=== PATIENT | male | born 1955 | race Hispanic/Latino ===

== ENCOUNTER 2018-07-04 15:44 | Inpatient (IN) | payer OTHER ==
[~2018-07-04] VITALS: Ht 162.6 cm; Wt 89.4 kg
[2018-07-04 16:08] VITALS: BP 126/56
[2018-07-04 17:00] VITALS: BP 126/56
--- NOTE | 2018-07-04 17:00 | NUR ---
PATIENT RECEIVED PER WHEEL CHAIR A DIRECT ADMIT FROM HOME. ALERT AND ORIENTED X4. DENIED PAIN AT THIS TIME. SKIN WARM AND DRY TO TOUCH, RESPIRATION EVEN AND UNLABORED, ABDOMEN SOFT LARGE AND NON DISTENDED. IV 2O GAUGE INSERTED TO RIGHT AC. LAB CALLED FOR BLOOD DRAWN. NOTED WITH ELEVATED TEMPERATURE, NOTIFIED AND NEW ORDER RECEIVED. PATIENT ORIENTED TO SURROUNDINGS. BED IN LOWER POSITION, CALL LIGHT AT REACH, INSTRUCTED TO CALL FOR ASSISTANCE NEEDED.
[2018-07-04] MEDS ORDERED: DEXTROSE 50% SYRINGE 50 ML IV PRN ×2 (17:15→17:30)
[2018-07-04] MEDS: INSULIN LISPRO 100 UNIT/1 ML 3ML VIAL SQ SCH ×2 (17:50→20:57)
[2018-07-04] MEDS: ACETAMINOPHEN 325 MG TAB PO PRN (17:55)
[2018-07-04] MEDS: SODIUM CHLORIDE 0.9% 1000ML 1,000 ML IV SCH (17:56)
[2018-07-04] MEDS: CARVEDILOL 12.5 MG TAB PO SCH (17:57)
--- NOTE | 2018-07-04 18:01 | Diagnostic Imaging Report ---
A single frontal view of the chest. HISTORY: Congestion COMPARISON: None available. DISCUSSION: Portable technique, limits sensitivity of the exam. Soft tissue attenuation partially limits sensitivity of the exam. Tubes/Lines: None Lungs and pleura: Low lung volumes result in bibasilar vascular crowding, accentuation of the pulmonary interstitial markings, central pulmonary vasculature, and the cardiac silhouette. Allowing for these limitations, the findings are as follows: No evidence of a consolidative pneumonia or pulmonary alveolar edema. No definite pleural effusion or pneumothorax is identified. Heart and mediastinum: The cardiomediastinal silhouette appears unremarkable. Bones and soft tissues: Appear unremarkable, given this limited exam. IMPRESSION: No acute radiographic abnormality. Signed by: Dr. Zak Balderrama D.O., M.M.M. on 07/04/2018 5:57 PM
[2018-07-04 18:48] LABS: BASOPHILS % 0.2 % (0.0-1.0); EOSINOPHILS % 0.1 % (0.0-6.0); HEMATOCRIT 31.6 % (38.2-49.6); HEMOGLOBIN 11.3 g/dL (14.0-18.0); LYMPHOCYTES # (AUTO) 0.6 (1.0-3.2); LYMPHOCYTES % 5.8 % (18.0-39.1); MEAN CORPUSCULAR HEMOGLOBIN 32.1 pg (28-32); MEAN CORPUSCULAR HGB CONC 35.8 g/dL (31-35); MEAN CORPUSCULAR VOLUME 89.8 fL (81-99); MONOCYTES # (AUTO) 0.9 (0.2-0.8); MONOCYTES % 8.9 % (4.4-11.3); NEUTROPHILS # (AUTO) 8.9 (2.1-6.9); NEUTROPHILS % 84.7 % (38.7-80.0); PLATELET COUNT 227 x10e3/uL (140-360); RED BLOOD COUNT 3.52 x10e6/uL (4.3-5.7); RED CELL DISTRIBUTION WIDTH 12.9 % (11.7-14.4)
[2018-07-04 19:06] LABS: ALBUMIN 2.7 g/dL (3.5-5.0); ALBUMIN/GLOBULIN RATIO 0.9 (0.8-2.0); ANION GAP 16.2 mmol/L (8-16); CALCIUM 8.2 mg/dL (8.4-10.2); CREATININE, SERUM 1.85 mg/dL (0.72-1.25); POTASSIUM 4.2 mmol/L (3.5-5.1)
[2018-07-04 19:30] VITALS: BP 109/52
--- NOTE | 2018-07-04 19:30 | NUR ---
Received change of shift report from AM nurse. Walking rounds completed.
[2018-07-04] MEDS: ATORVASTATIN 40 MG TAB PO SCH (20:18)
[2018-07-04] MEDS ORDERED: INSULIN REGULAR, HUMAN 100 UNIT/1 ML 3ML VIAL SQ SCH (21:00)
[2018-07-04] MEDS ORDERED: ATORVASTATIN 20 MG TAB PO SCH (21:00)
[2018-07-04] MEDS: PIPER-TAZ 3.375 GM 50 ML IV SCH (21:07)
[2018-07-05] VITALS (7 sets, daily range): BP systolic 103–141; BP diastolic 54–66
--- NOTE | 2018-07-05 | NUR ---
Patient resting quitly at this time.
[2018-07-05] MEDS: ACETAMINOPHEN 325 MG TAB PO PRN (00:10)
[2018-07-05] MEDS: SODIUM CHLORIDE 0.9% 1000ML 1,000 ML IV SCH (01:15)
[2018-07-05] MEDS: PIPER-TAZ 3.375 GM 50 ML IV SCH ×3 (05:31→22:30)
--- NOTE | 2018-07-05 06:27 | NUR ---
Patient resting quitly at this time.
--- NOTE | 2018-07-05 07:22 | NUR ---
PATIENT IN BED RESTING WITH NO RESPIRATORY DISTRESS. URINAL EMPTIED AND CLEANSED. IV FLUID INFUSING ORDERED. BED IN LOWER POSITION, CALL LIGHT AT REACH.
[2018-07-05] MEDS: INSULIN REGULAR, HUMAN 100 UNIT/1 ML 3ML VIAL SQ SCH ×2 (07:30→11:30)
[2018-07-05] MEDS ORDERED: INSULIN ASPART 70/30 100 UNITS/ML VIAL SC SCH (07:30)
[2018-07-05] MEDS: INSULIN LISPRO 100 UNIT/1 ML 3ML VIAL SQ SCH ×5 (07:30→21:08)
[2018-07-05] MEDS ORDERED: METFORMIN HCL 500 MG TAB CR PO SCH (08:00)
--- NOTE | 2018-07-05 08:55 | History and Physical ---
CHIEF COMPLAINT: Burning and frequency of urine since last few days associated with severe chills and low back pain. HISTORY OF PRESENT MEDICAL ILLNESS: A 63-year-old pleasant male with past medical history of multiple medical problems, was admitted at [facility] yesterday afternoon by PCP/attending, Dr. Sin St from his office for possible pyelonephritis, UTI, and sepsis. Patient was admitted into the hospital. Patient was started on IV antibiotic, Zosyn, for further care and treatment. At present, patient is lying comfortably in bed, no apparent distress. No shortness of breath. No nausea, vomiting, or diarrhea. No abdominal pain or loss of consciousness. No palpitations. No headaches. No hematemesis, no melena, no hematuria, or no dysuria. No cough. No witnessed seizures. Complained of chest pain on and off since last few days, generalized, no radiation, no relation to exertion. PAST MEDICAL HISTORY 1. Diabetes mellitus type 2, uncontrolled. 2. CAD. 3. Hypertension. 4. Degenerative joint disease. MEDICATIONS: As listed in chart. ALLERGIES: NO KNOWN DRUG ALLERGIES. PAST SURGICAL HISTORY: Not significant. SOCIAL HISTORY: No smoking. No alcohol. No illicit drug use. Lives with family. REVIEW OF SYSTEMS: As per HPI. PHYSICAL EXAMINATION GENERAL: Patient is alert, awake and oriented x3, in no apparent distress, eating breakfast in bed. VITALS: T-max yesterday at 101, pulse is 88 per minute, respiratory rate is 18 per minute, blood pressure is 148/70, and saturation is 96%. SKIN: No cyanosis. No icterus. No pallor. HEENT: Normocephalic, atraumatic. PERRLA. NECK: Soft and supple. No JVD. No carotid bruits. LUNGS: Air entry bilaterally equal HEART: S1 and S2. No murmur, no gallop, no rub. ABDOMEN: Soft, nontender. Bowel sounds plus. MANUFACTURING QUALITY INSPECTOR: Alert, awake, and oriented x3. No focal deficit. EXTREMITIES: No cyanosis, no clubbing, no edema. No calf pain. LABS: On admission last night; sodium 120, potassium 4.2, chloride 94, bicarb 23, BUN 30, creatinine 1.85, glucose 403. LFTs noted. White count 10.4, hemoglobin 11.3, hematocrit 31.6, and platelets 227. Chest x-ray, no acute radiographic abnormality. ASSESSMENT 1. Fever and chills with burning urine, likely urinary tract infection, pyelonephritis, sepsis. 2. Diabetes mellitus type 2, uncontrolled. 3. Atypical chest pain. 4. History of hypertension. 5. Degenerative joint disease. 6. Coronary artery disease. 7. Acute renal insufficiency. PLAN: Admit patient to community hospital floor. IV Zosyn, harden cultures, ultrasound of renal. Endocrine consultation, Dr. Carmichael. Renal consultation, Dr. Villegas. We will get EKG and serial cardiac enzymes. Cardiology consultation, Dr. Shearer. We will continue home medications. Hold metformin, losartan, and hydrochlorothiazide secondary to acute renal insufficiency. Further care and treatment as per clinical course of the patient in the hospital. Discussed with patient in detail. Job#: [id number] ROBERTH
[2018-07-05] MEDS ORDERED: LOSARTAN POTASSIUM 100 MG TAB PO SCH (09:00)
[2018-07-05] MEDS ORDERED: HYDROCHLOROTHIAZIDE 25 MG TAB PO SCH (09:00)
[2018-07-05 09:02] LABS: BASOPHILS % 0.1 % (0.0-1.0); EOSINOPHILS % 0.4 % (0.0-6.0); HEMATOCRIT 34.1 % (38.2-49.6); HEMOGLOBIN 12.4 g/dL (14.0-18.0); LYMPHOCYTES # (AUTO) 0.6 (1.0-3.2); LYMPHOCYTES % 7.3 % (18.0-39.1); MEAN CORPUSCULAR HEMOGLOBIN 32.3 pg (28-32); MEAN CORPUSCULAR HGB CONC 36.4 g/dL (31-35); MEAN CORPUSCULAR VOLUME 88.8 fL (81-99); MONOCYTES # (AUTO) 1.1 (0.2-0.8); MONOCYTES % 13.4 % (4.4-11.3); NEUTROPHILS # (AUTO) 6.7 (2.1-6.9); NEUTROPHILS % 78.3 % (38.7-80.0); PLATELET COUNT 247 x10e3/uL (140-360); RED BLOOD COUNT 3.84 x10e6/uL (4.3-5.7); RED CELL DISTRIBUTION WIDTH 12.9 % (11.7-14.4)
[2018-07-05 09:06] LABS: CLARITY,URINE HAZY (CLEAR); COLOR,URINE YELLOW (YELLOW); KETONES,URINE TRACE (NEGATIVE); LEUKOCYTE ESTERASE ,URINE TRACE (NEGATIVE); NITRITE,URINE NEGATIVE (NEGATIVE); PROTEIN,URINE DIPSTICK TRACE (NEGATIVE)
[2018-07-05 09:07] LABS: BILIRUBIN,URINE NEGATIVE (NEGATIVE); URINE UROBILINOGEN 0.2 mg/dL (0.2 - 1)
[2018-07-05 09:15] LABS: BACTERIA,URINE FEW /HPF; EPITHELIAL CELLS,URINE FEW /LPF; RBC,URINE 0-5 /HPF (0-5)
[2018-07-05] MEDS: CLOPIDOGREL BISULFATE 75 MG TAB PO SCH (09:20)
[2018-07-05] MEDS: CLONIDINE HCL 0.1 MG TAB PO SCH ×2 (09:20→17:18)
[2018-07-05] MEDS: CARVEDILOL 12.5 MG TAB PO SCH ×2 (09:20→17:14)
[2018-07-05] MEDS: PREGABALIN 50 MG CAP PO SCH ×2 (09:20→17:14)
[2018-07-05 09:21] LABS: ALBUMIN 2.7 g/dL (3.5-5.0); ALBUMIN/GLOBULIN RATIO 0.8 (0.8-2.0); CALCIUM 8.8 mg/dL (8.4-10.2); CREATININE, SERUM 1.33 mg/dL (0.72-1.25)
[2018-07-05 09:28] LABS: CREATINE KINASE MB 1.2 ng/mL (0-5.0)
[2018-07-05] MEDS ORDERED: ASPIRIN 81 MG CHEW TAB PO ONE (09:30)
[2018-07-05 09:44] LABS: CHOL/HDL RATIO 3.2 (3.9-4.7)
--- NOTE | 2018-07-05 10:19 | Consultation ---
DATE OF CONSULTATION: REQUESTING PHYSICIAN: Dr. Rhodes/Dr. St. REASON FOR CONSULT: Chest pain. HISTORY OF PRESENT ILLNESS: Mr. Murrieta is a 63-year-old gentleman with past medical history as listed below. He was admitted from Dr. St's office for UTI, possible pyelonephritis. The patient states that he has been having urinary problems and has burning sensation when he urinates for the last week or so. He was started on antibiotics. Reportedly since , he has also been experiencing some shortness of breath and this morning, he started experiencing pain all across his chest. He states it lasted for several hours. No radiation. No abdominal pain, vomiting, or diarrhea. He does have some backache. REVIEW OF SYSTEMS: Constitutional: He has some fatigue and weakness. HEENT: No headache, blurring of vision, seizures, or syncope. Cardiovascular: He has chest pain. He has dyspnea. No orthopnea or PND. Respiratory: No cough. Has fever, chills. No expectoration. GI: No abdominal pain, vomiting, or diarrhea. : He has some dysuria and has frequency. ALLERGIES: NO KNOWN DRUG ALLERGIES. MEDICATIONS: See list. PAST MEDICAL HISTORY 1. History of hypertension. 2. History of diabetes mellitus. 3. History of back pain. 4. History of arthritis. SOCIAL HISTORY: He does not smoke. He drinks alcohol occasionally. FAMILY HISTORY: Noncontributory. PHYSICAL EXAMINATION GENERAL: Slightly obese gentleman, alert and oriented, not in any obvious distress. VITALS: Heart rate is 88. Blood pressure 141/66. Respiratory rate is 18. Temperature 99 1. HEENT: Atraumatic. NECK: No JVD, bruit, thyromegaly, or lymphadenopathy. CARDIOVASCULAR: First and second heart sounds. No murmurs, rubs, or gallops appreciated. CHEST: Decreased air entry at the bases. No adventitious sounds appreciated. ABDOMEN: Obese and nontender. EXTREMITIES: No edema. LABORATORY DATA: Sodium is 129, potassium 4.0, chloride 94, bicarb is 23, BUN is 30, creatinine is 1.8. Hemoglobin is 11.3, hematocrit 31.6, platelets 227,000. White count is 10.4. LFTs are normal. IMAGING STUDIES: No EKG available. Chest x-ray, no acute changes. IMPRESSION Urinary tract infection/pyelonephritis. Chest pain. Diabetes mellitus. Hypertension. Arthritis. Renal failure. Hyponatremia. PLAN 1. Follow serial cardiac enzymes. 2. Get echocardiogram to assess LV function and valvular function. 3. His chest pain is atypical. 4. Use statin and clopidogrel. Can continue the same. 5. Continue with other medications. 6. Further cardiac workup depending on clinical course. 7. Discussed my impression, plan, and management with patient and he understands. As always, I appreciate and thank you very much for the referral. Job#: [id number] ROSSANA
--- NOTE | 2018-07-05 11:41 | NUR ---
URINE SPECIMEN COLLECTED AND SENT TO THE LAB.
--- NOTE | 2018-07-05 12:28 | Diagnostic Imaging Report ---
EXAM: RENAL ULTRASOUND Date: 07/05/2018 12:00 AM Indication: Comparison: None Technique: Sonographic evaluation of the kidneys. Color doppler was utilized to supplement evaluation. FINDINGS: KIDNEYS: Right: Measures 12.3 cm in length. No hydronephrosis or solid mass lesion identified. Renal cortex measures 1.2 cm. Left: Measures 12.4 cm in length. No hydronephrosis or solid mass lesion identified. Renal cortex measures 1.6 cm. URINARY BLADDER: Right ureteral jet visualized. Left jet not visualized, questionably technical. OTHER: None. IMPRESSION: Unremarkable renal ultrasound. Signed by: Dr. Derik Zhang MD on 07/05/2018 12:25 PM
--- NOTE | 2018-07-05 15:31 | Consultation ---
DATE OF CONSULTATION: July 05, 2018 ATTENDING PHYSICIAN: Dr. Sin St REASON FOR CONSULTATION: Fever. Thank you Dr. Rhodes and Dr. St for asking me to see this patient. HISTORY: The patient is a 63-year-old man referred for fever. He was admitted from the primary care provider's office with acute pyelonephritis. The patient developed progressively worse dysuria 5 days earlier, associated with lower back pain, chills, fever, and nausea a day or two prior. On the day of admission, he had an episode of watery stool. Therefore, he decided to go to the primary care provider. Following evaluation, he was admitted from the primary care provider's office for further evaluation and management. PAST MEDICAL HISTORY: Diabetes mellitus type 2 with peripheral neuropathy, hypertension, hyperlipidemia, and coronary artery disease. PAST SURGICAL HISTORY: Bilateral feet surgery for hammertoes, and excision of fatty tumor of the foot. ALLERGIES: NO KNOWN DRUG ALLERGIES. MEDICATION: The current antibiotic is Zosyn 3.375 grams IV q.8 hours. IMMUNIZATION: Unable to verify influenza and pneumococcal vaccination status at this time. FAMILY HISTORY: Significant for diabetes mellitus type 2 in the parents and siblings. SOCIAL HISTORY: He quit smoking cigarettes 30 years ago. He cut down alcohol consumption drastically to occasional one beer. REVIEW OF SYSTEMS: The patient feels better since admission and management. He feels that the fever appears to subside and he has not had new diarrhea. However, he developed difficulty breathing and chest tightness on IV fluids which required a cardiology evaluation. PHYSICAL EXAMINATION VITALS: T-Max 101, pulse rate 83, respiratory rate 23, blood pressure 103/55, weight 198 pounds. GENERAL: No acute distress. HEENT: Normocephalic. There is no icterus or injection of conjunctivae. There is no ear or nasal discharge. Moist oral mucosa. No pharyngeal erythema or exudate. NECK: Supple. No meningismus. LUNGS: Few basilar rales. HEART: Normal S1 and S2. Regular. ABDOMEN: Soft and nontender. EXTREMITIES: There is no edema, clubbing, or cyanosis. The dorsalis pedis and posterior tibial pulses are palpable. SKIN: There is no acute erythema. CESSATION SYSTEMS OUTREACH SPECIALIST: Awake, alert, and oriented to person, place, and time. There is decreased sensation to monofilament test of the feet. Nonfocal. LABORATORY DATA/DIAGNOSTIC DATA: WBC 8490 down from 10,470, hemoglobin 12.4, platelet 247,000, neutrophils 78.3, lymphocytes 7.3, monocytes 13.4, eosinophil 0.4, basophil 0.1. BUN 20, creatinine 1.33, blood glucose 296 down from 400 on admission. Blood culture is pending. A urine culture is also pending. Renal ultrasound was unremarkable. IMPRESSION 1. Probable sepsis from acute pyelonephritis, present on admission. 2. Diabetes mellitus type 2. 3. Peripheral neuropathy, uncontrolled. 4. Acute kidney injury, improving. PLAN: Await blood and urine culture results. Verify influenza and pneumococcal vaccination status from the primary care provider's office. Stop IV fluids due to difficulty breathing on IV fluids suggesting fluid overload. Patient should take fluid orally. Glycemic control per endocrinology service. Job#: [id number] ROSSANA
--- NOTE | 2018-07-05 16:31 | NUR ---
MD IN TO SEE PATIENT, NEW ORDERS RECEIVED.
[2018-07-05 17:42] LABS: FREE T4 (FREE THYROXINE) 0.95 ng/dL (0.9-1.8); THYROID STIMULATING HORMONE 0.153 uIU/mL (0.350-4.940)
--- NOTE | 2018-07-05 19:51 | Consultation ---
DATE OF CONSULTATION: July 05, 2018 ENDOCRINE CONSULTATION PATIENT OF: Dr. Sin St. Thank you very much for referring this patient. HISTORY OF PRESENT ILLNESS This is a 63-year-old gentleman who is referred to me for evaluation of uncontrolled diabetes mellitus. Patient reportedly is a nondiabetic for almost 10 plus years. He has multiple complications related to diabetes including severe diabetic sensory neuropathy. He came to the hospital with history of pyelonephritis, urinary tract infection, high-grade fever, and chills. Patient takes about 60 units of 70/30 twice a day and also takes regular insulin 15 to 30 three times a day depending upon his blood sugars. Patient also has history of coronary artery disease, mild renal sufficiency, hypertension and hyperlipidemia. His other routine medications include Plavix, Lipitor 80 mg once daily, clonidine, and Lyrica. PHYSICAL EXAMINATION GENERAL: Today, the patient is alert, awake, a little bit apprehensive, morbidly overweight. VITALS: His heart rate is around 78, blood pressure 136/86 mmHg. HEENT: Essentially unremarkable. Thyroid is palpable. Clinically, he is near euthyroid. CHEST: Bilateral vesicular breathing. He has bilateral bronchospasm. CARDIAC: Both 1st and 2nd heart sounds. There is no 3rd and 4th heart sound. Ejection systolic murmur, grade 2/6. At the time of his admission, his blood sugar was 403 and anion gap was 16.2. His BUN and creatinine is 30 and 1.85. His blood sugars have been presently in the ranges up to 96 to 335. CLINICAL IMPRESSION 1. Diabetes mellitus type 2, uncontrolled with complications. 2. Acute pyelonephritis. 3. Hypertension. 4. Hyperlipidemia. 5. Coronary artery disease. The plan at this time is to do a hemoglobin A1c, thyroid function test, morning his blood sugars closely, and start him on the Lantus twice a day and Humalog with each meal and discontinued the 70/30 insulin. Thanks for referring this patient. I will be following this patient with you. Job#: [id number] GRIS MANCINI
[2018-07-05] MEDS: TAMSULOSIN HCL 0.4 MG CAP PO SCH (21:07)
[2018-07-05] MEDS: INSULIN DETEMIR 100 UNIT/ML PEN SQ SCH (21:07)
[2018-07-05] MEDS: ATORVASTATIN 40 MG TAB PO SCH (21:07)
[2018-07-06] VITALS (8 sets, daily range): BP systolic 120–150; BP diastolic 58–71
[2018-07-06] MEDS: PIPER-TAZ 3.375 GM 50 ML IV SCH ×3 (06:04→21:51)
[2018-07-06 06:07] LABS: CREATINE KINASE 208 IU/L (30-200)
[2018-07-06 07:03] LABS: ANION GAP 15.1 mmol/L (8-16); BLOOD UREA NITROGEN 15 mg/dL (7-26); BUN/CREATININE RATIO 13 (6-25); CALCIUM 9.2 mg/dL (8.4-10.2); CARBON DIOXIDE 25 mmol/L (22-29); CHLORIDE 103 mmol/L (98-107); CREATININE, SERUM 1.13 mg/dL (0.72-1.25); EST GLOMERULAR FILTRATION RATE > 60 ML/MIN (60-); GLUCOSE 124 mg/dL (74-118); POTASSIUM 4.1 mmol/L (3.5-5.1); SODIUM 139 mmol/L (136-145)
--- NOTE | 2018-07-06 07:14 | NUR ---
PATIENT SITTING UP IN BED WATCHING TV, NO RESPIRATORY DISTRESS OBSERVED. ALL PERSONAL ITEMS CLOSE TO PATIENT, CALL LIGHT AT REACH.
[2018-07-06] MEDS: INSULIN LISPRO 100 UNIT/1 ML 3ML VIAL SQ SCH ×7 (07:30→21:00)
[2018-07-06] MEDS: INSULIN DETEMIR 100 UNIT/ML PEN SQ SCH ×2 (09:00→21:00)
[2018-07-06] MEDS: CLOPIDOGREL BISULFATE 75 MG TAB PO SCH (09:06)
[2018-07-06] MEDS: CARVEDILOL 12.5 MG TAB PO SCH ×2 (09:06→17:21)
[2018-07-06] MEDS: CLONIDINE HCL 0.1 MG TAB PO SCH ×2 (09:06→17:20)
[2018-07-06] MEDS: PREGABALIN 50 MG CAP PO SCH ×2 (09:06→17:21)
[2018-07-06] MEDS ORDERED: ALBUTEROL/IPRATROPIUM 3 ML NEB NEB PRN (10:30)
[2018-07-06] MEDS ORDERED: BENZONATATE 100 MG CAP PO PRN (10:30)
--- NOTE | 2018-07-06 11:30 | NUR ---
SPOKE WITH MD REGARDING OF PATIENT COUGHING AT TIME, NEW ORDER RECEIVED.
[2018-07-06 13:22] LABS: CREATINE KINASE 188 IU/L (30-200)
--- NOTE | 2018-07-06 15:15 | NUR ---
PATIENT ASSISTED WITH SHOWER. LINENS CHANGED, IN CHAIR TALKING TO FAMILY MEMBERS. CALL LIGHT AT REACH.
[2018-07-06] MEDS: TAMSULOSIN HCL 0.4 MG CAP PO SCH (21:20)
[2018-07-06] MEDS: ATORVASTATIN 40 MG TAB PO SCH (21:20)
[2018-07-07] VITALS (7 sets, daily range): BP systolic 125–154; BP diastolic 59–76
[2018-07-07 05:33] LABS: BASOPHILS % 0.3 % (0.0-1.0); EOSINOPHILS # (AUTO) 0.2 (0.0-0.4); EOSINOPHILS % 2.6 % (0.0-6.0); HEMATOCRIT 36.1 % (38.2-49.6); HEMOGLOBIN 12.3 g/dL (14.0-18.0); LYMPHOCYTES # (AUTO) 1.1 (1.0-3.2); LYMPHOCYTES % 16.9 % (18.0-39.1); MEAN CORPUSCULAR HGB CONC 34.1 g/dL (31-35); MEAN CORPUSCULAR VOLUME 90.9 fL (81-99); MONOCYTES # (AUTO) 0.9 (0.2-0.8); MONOCYTES % 13.9 % (4.4-11.3); NEUTROPHILS # (AUTO) 4.1 (2.1-6.9); PLATELET COUNT 295 x10e3/uL (140-360); RED BLOOD COUNT 3.97 x10e6/uL (4.3-5.7); RED CELL DISTRIBUTION WIDTH 12.9 % (11.7-14.4)
[2018-07-07 05:59] LABS: ALANINE AMINOTRANSFERASE 73 IU/L (0-55); ALBUMIN 2.7 g/dL (3.5-5.0); ALBUMIN/GLOBULIN RATIO 0.7 (0.8-2.0); ALKALINE PHOSPHATASE 98 IU/L (40-150); ANION GAP 15.3 mmol/L (8-16); BLOOD UREA NITROGEN 14 mg/dL (7-26); BUN/CREATININE RATIO 13 (6-25); CALCIUM 9.6 mg/dL (8.4-10.2); CARBON DIOXIDE 25 mmol/L (22-29); CHLORIDE 104 mmol/L (98-107); CREATININE, SERUM 1.11 mg/dL (0.72-1.25); EST GLOMERULAR FILTRATION RATE > 60 ML/MIN (60-); GLUCOSE 165 mg/dL (74-118); POTASSIUM 4.3 mmol/L (3.5-5.1); SODIUM 140 mmol/L (136-145)
[2018-07-07] MEDS: PIPER-TAZ 3.375 GM 50 ML IV SCH (06:04)
[2018-07-07 07:55] LABS: EOSINOPHILS % (MANUAL) 12 % (0-7); LYMPHOCYTES % (MANUAL) 15 % (19-48); MONOCYTES % (MANUAL) 9 % (3.4-9.0); NEUTROPHILS % (MANUAL) 61 % (40-74)
[2018-07-07 07:56] LABS: PLATELET ESTIMATE ADEQUATE; PLATELET MORPHOLOGY COMMENT NORMAL; RBC MORPHOLOGY COMMENT NORMAL
[2018-07-07] MEDS: INSULIN LISPRO 100 UNIT/1 ML 3ML VIAL SQ SCH ×7 (09:07→21:00)
[2018-07-07] MEDS: PREGABALIN 50 MG CAP PO SCH ×2 (09:08→17:42)
[2018-07-07] MEDS: CLOPIDOGREL BISULFATE 75 MG TAB PO SCH (09:08)
[2018-07-07] MEDS: INSULIN DETEMIR 100 UNIT/ML PEN SQ SCH ×2 (09:08→21:00)
[2018-07-07] MEDS: CARVEDILOL 12.5 MG TAB PO SCH ×2 (09:08→17:43)
--- NOTE | 2018-07-07 09:08 | NUR ---
Pt received resting in bed with at bedside. Alert and oriented x4 with right AC #20 patent. Oriented to staff and surroundings. Encouraged to press call crow if help needed. All meds given as ordered. Emotional support given. Will monitor
[2018-07-07] MEDS ORDERED: SODIUM CHLORIDE 0.9% 250ML 250 ML ONE (10:29)
[2018-07-07] MEDS: CLONIDINE HCL 0.1 MG TAB PO SCH ×2 (12:27→17:43)
[2018-07-07] MEDS: CEFTRIAXONE SOD 1 GM/NS 50 ML 50 ML IV SCH (12:27)
--- NOTE | 2018-07-07 13:40 | Consultation ---
DATE OF CONSULTATION: REASON FOR CONSULTATION: Acute kidney injury. Thank you for allowing us to participate in Mr. Aquino's care. This is a 63-year-old male originally admitted with symptoms consistent with pyelonephritis, including dysuria and some back discomfort. IV antibiotics were started. Briefly got some fluids. Renal ultrasound was negative. Creatinine was 1.85 on admission and is now down to 1.1. GFR is in the normal range. AST and ALT slightly elevated. UA was consistent with UTI. Thus far, the blood cultures have been negative. Urine cultures have also been negative. The symptoms and UA picture is characteristic. PAST HISTORY: Normal renal function, type 2 diabetes, hypertension, coronary artery disease. MEDICATIONS: Please see chart. SOCIAL HISTORY: Does not drink alcohol or smoke. Lives with family. REVIEW OF SYSTEMS CONSTITUTIONAL: Currently, no fever or chills. RESPIRATORY: No dyspnea or cough. CARDIAC: No angina or syncope. NEURO: Denying headache or seizures. : Dysuria has improved. The rest of the review is negative. PHYSICAL EXAMINATION VITALS: Currently, temperature is down to 97.3, pulse 74, blood pressure 125/67. HEENT: Atraumatic. NECK: No JVD. CHEST: Clear. Bilateral breath sounds are equal. CARDIAC: Normal heart tones. Rhythm sounds regular. EXTREMITIES: No edema. ABDOMEN: Benign. No CVA angle tenderness. UA was showing some wbcs and rbcs. Potassium is 4.3, serum CO2 25, creatinine 1.1. Estimated GFR greater than 60 mL per minute. The UA did show some proteinuria, but this was in the presence of pyuria too. ASSESSMENT 1. Acute kidney injury, improved: Likely from the pyelonephritis/mild acute tubular necrosis. 2. Questionable underlying mild diabetic nephropathy given the proteinuria. 3. Currently, satisfactory GFR. 4. Hypertension is adequately controlled. PLAN: From a renal standpoint, no further intervention. Once outpatient of the proteinuria/microalbuminemia persists, please add back BLANQUITA inhibitor or ARB. Will follow from a distance. Job#: [id number] CA
--- NOTE | 2018-07-07 19:00 | NUR ---
Received change of shift report from AM nurse. Walking round completed.
[2018-07-07] MEDS: ATORVASTATIN 40 MG TAB PO SCH (21:00)
[2018-07-07] MEDS: TAMSULOSIN HCL 0.4 MG CAP PO SCH (21:00)
--- NOTE | 2018-07-07 23:01 | NUR ---
Received change of shift report from GERA maloney Walking round completed. Addendum: 07/07/18 at 0485 by Estela Maldonado RN duplicate
--- NOTE | 2018-07-07 23:15 | NUR ---
Patient in room sitting in recliner chair. Denies pain at this time. Blood glucose 327. Insulin given as ordered by MD. at bedside. IV intact with no redness or pain noted.
[2018-07-08] VITALS: BP 134/65
[2018-07-08 04:00] VITALS: BP 135/62
--- NOTE | 2018-07-08 05:00 | NUR ---
Patient resting quitly with no c/o at this time.
[2018-07-08] MEDS: INSULIN LISPRO 100 UNIT/1 ML 3ML VIAL SQ SCH ×4 (07:30→12:48)
[2018-07-08 08:05] VITALS: BP 156/67
[2018-07-08] MEDS: CLONIDINE HCL 0.1 MG TAB PO SCH (08:59)
[2018-07-08] MEDS: PREGABALIN 50 MG CAP PO SCH (08:59)
[2018-07-08] MEDS: CEFTRIAXONE SOD 1 GM/NS 50 ML 50 ML IV SCH (08:59)
[2018-07-08] MEDS: CARVEDILOL 12.5 MG TAB PO SCH (08:59)
[2018-07-08] MEDS: CLOPIDOGREL BISULFATE 75 MG TAB PO SCH (08:59)
[2018-07-08] MEDS: INSULIN DETEMIR 100 UNIT/ML PEN SQ SCH (08:59)
[2018-07-08 09:00] VITALS: BP 156/67
--- NOTE | 2018-07-08 09:00 | NUR ---
Pt received resting in bed. Alert and oriented x4. All meds given as ordered. Call crow within reach. Will monitor
[2018-07-08] MEDS ORDERED: MONUROL3 GM PO (10:31)
[2018-07-08 12:05] VITALS: BP 166/74
[2018-07-08] MEDS ORDERED: LANTUS 3ML100 UNITS/ SC (13:52)
[2018-07-08] MEDS ORDERED: HUMALOG100 UNIT/3 SC (13:53)
--- NOTE | 2018-07-08 14:16 | NUR ---
Pt educated regarding meds, diet, activities, and follow up appointment with PCP. Pt verbalized understanding of teaching. Pt refusing whelchair. Escorted off unit by PCT with all belongings
[2018-07-08] MEDS ORDERED: INSULIN LISPRO 100 UNIT/1 ML 3ML VIAL SQ SCH (16:30)
--- NOTE | 2018-07-08 17:03 | Discharge Summary ---
He is a 63-year-old male patient of mine, presented to the emergency room with a complaint of severe bilateral flank pain, fever and chills and very profound weakness. ADMITTING IMPRESSIONS/DIAGNOSES 1. Pyelonephritis. 2. Possible urosepsis. 3. Diabetes mellitus. 4. Hypertension. 5. Hyperlipidemia. 6. Diabetic neuropathy. HOSPITAL COURSE: The patient was admitted with the above diagnoses. Patient had filled outpatient Rocephin just prior to her hospital admission. During hospitalization, patient was found to also have renal insufficiency. So ID, renal, cardiology, and endocrine consult was called by on-call doctor for chest pain. Patient's sugar remained controlled in the hospital. Patient's blood culture and urine culture did not grow any bacteria. Patient had improved significantly with IV antibiotic, Rocephin. The patient's renal function also had improved. Patient has a creatinine GFR of 37. So now, upon stabilization, patient will be discharged home and we will follow up as an outpatient. Patient will be given fosfomycin 3 g once a day. DISCHARGE DIAGNOSES 1. Pyelonephritis. 2. Urosepsis. 3. Diabetes mellitus. 4. Renal insufficiency. Patient was advised to follow up as outpatient. MOLLY MILES MD Job#: [id number] TA
== END 2018-07-08 14:21 | disposition home or self-care (01) | DRG 871 ==
LOC: MED/SURG3 15:44
PROVIDERS: ADMIT Internal Medicine; ATTEND Internal Medicine
DX: A41.9 Sepsis, unspecified organism (principal); N17.0 Acute kidney failure with tubular necrosis; N10 Acute pyelonephritis; E87.1 Hypo-osmolality and hyponatremia; E11.42 Type 2 diabetes mellitus with diabetic polyneuropathy; I10 Essential (primary) hypertension; E78.5 Hyperlipidemia, unspecified; E11.65 Type 2 diabetes mellitus with hyperglycemia; R07.89 Other chest pain; M19.90 Unspecified osteoarthritis, unspecified site; I25.10 Atherosclerotic heart disease of native coronary artery without angina pectoris; E11.21 Type 2 diabetes mellitus with diabetic nephropathy; Z79.4 Long term (current) use of insulin
CPT/HCPCS: 36415; 71045; 76770; 80048; 80053; 80061; 81001; 82550; 82553; 82948; 83036; 84439; 84443; 84484; 85025; 87040; 87086; 93005; 93306; 96361; J0696; J1815; J2543; J7030; J7050

== ENCOUNTER 2018-07-27 00:13 | Observation (INO) | payer OTHER ==
[~2018-07-27] VITALS: Ht 162.6 cm; Wt 91.2 kg
[~2018-07-27 00:13] MED LIST: HUMALOG100 UNIT/3 SC; LANTUS 3ML100 UNITS/ SC; MONUROL3 GM PO
--- OUTSIDE RECORDS SUMMARY | 2018-07-27 00:16 | XMS REPORT ---
Author Author [facility] Address Unknown Phone Unavailable Care Team Providers Care Armature Coil Winder Name Role Phone Wendi MILES Unavailable Unavailable Problems This patient has no known problems. Allergies, Adverse Reactions, Alerts This patient has no known allergies or adverse reactions. Medications This patient has no known medications. Results Test Description Test Time Test Comments Text Results Atomic Results Result Comments US RENAL RETROPERITONEAL COMP 2018-07-05 12:24:00 [place] [address] Patient Name: ЕЛЕНА MORRELL MR #: [id number] : 1955 Age/Sex: 63/M Req #: [id number] Adm Physician: MOLLY MILES MD Ordered by: DANIELLE WESTBROOK MD Report #: [id number] Location: [facility] Room/Bed: [facility] Procedure: [id number] US/US RENAL RETROPERITONEAL COMP Exam Date: 07/05/18 Exam Time: 1132 REPORT STATUS: Signed EXAM: RENAL ULTRASOUND Date: 07/05/2018 12:00 AM Indication: Comparison: None Technique: Sonographic evaluation of the kidneys. Color doppler was utilized to supplement evaluation. FINDINGS: KIDNEYS: Right: Measures 12.3 cm in length. No hydronephrosis or solid mass lesion identified. Renal cortex measures 1.2 cm. Left: Measures 12.4 cm in length. No hydronephrosis or solid mass lesion identified. Renal cortex measures 1.6 cm. URINARY BLADDER: Right ureteral jet visualized. Left jet not visualized, questionably technical. OTHER: None. IMPRESSION: Unremarkable renal ultrasound. Signed by: Dr. Derik Zhang MD on 07/05/2018 12:25 PM Dictated By: DERIK ZHANG MD 1225 Transcribed By: SEEMA on 07/05/18 1225 COPY TO: DANIELLE WESTBROOK MD CHEST SINGLE (PORTABLE) 2018-07-04 17:57:00 [place] [address] Patient Name: ЕЛЕНА MORRELL MR #: [id number] : 1955 Age/Sex: 63/M Req #: [id number] Adm Physician: MOLLY MILES MD Ordered by: MOLLY MILES MD Report #: [id number] Location: [facility]/SURG3 Room/Bed: [facility] Procedure: [id number] DX/CHEST SINGLE (PORTABLE) Exam Date: 07/04/18 Exam Time: 1730 REPORT STATUS: Signed A single frontal view of the chest. HISTORY: Congestion COMPARISON: None available. DISCUSSION: Portable technique, limits sensitivity of the exam. Soft tissue attenuation partially limits sensitivity of the exam. Tubes/Lines: None Lungs and pleura: Low lung volumes result in bibasilar vascular crowding, accentuation of the pulmonary interstitial markings, central pulmonary vasculature, and the cardiac silhouette. Allowing for these limitations, the findings are as follows: No evidence of a consolidative pneumonia or pulmonary alveolar edema. No definite pleural effusion or pneumothorax is identified. Heart and mediastinum: The cardiomediastinal silhouette appears unremarkable. Bones and soft tissues: Appear unremarkable, given this limited exam. IMPRESSION: No acute radiographic abnormality. Signed by: Dr. Oscar Balderrama D.O., M.M.M. on 07/04/2018 5:57 PM Dictated By: OSCAR BALDERRAMA DO 56 Transc ribed By: SEEMA on 07/04/181756 COPY TO: MOLLY MILES MD
[2018-07-27 03:00] LABS: CLARITY,URINE CLOUDY (CLEAR); COLOR,URINE RED (YELLOW); LEUKOCYTE ESTERASE ,URINE 1+ (NEGATIVE); NITRITE,URINE NEGATIVE (NEGATIVE)
[2018-07-27 03:01] LABS: BILIRUBIN,URINE NEGATIVE (NEGATIVE); EPITHELIAL CELLS,URINE FEW /LPF; KETONES,URINE NEGATIVE (NEGATIVE); PROTEIN,URINE DIPSTICK 3+ (NEGATIVE); RBC,URINE >50 /HPF (0-5); URINE UROBILINOGEN 0.2 mg/dL (0.2 - 1)
[2018-07-27 04:13] LABS: BASOPHILS % 0.2 % (0.0-1.0); EOSINOPHILS # (AUTO) 0.2 (0.0-0.4); EOSINOPHILS % 1.7 % (0.0-6.0); HEMATOCRIT 38.4 % (38.2-49.6); HEMOGLOBIN 13.4 g/dL (14.0-18.0); LYMPHOCYTES # (AUTO) 1.5 (1.0-3.2); LYMPHOCYTES % 12.1 % (18.0-39.1); MEAN CORPUSCULAR HEMOGLOBIN 31.6 pg (28-32); MEAN CORPUSCULAR HGB CONC 34.9 g/dL (31-35); MEAN CORPUSCULAR VOLUME 90.6 fL (81-99); MONOCYTES # (AUTO) 1.4 (0.2-0.8); MONOCYTES % 11.2 % (4.4-11.3); NEUTROPHILS % 74.4 % (38.7-80.0); PLATELET COUNT 276 x10e3/uL (140-360); RED BLOOD COUNT 4.24 x10e6/uL (4.3-5.7); RED CELL DISTRIBUTION WIDTH 13.2 % (11.7-14.4)
[2018-07-27 04:25] LABS: ALANINE AMINOTRANSFERASE 28 IU/L (0-55); ALBUMIN 3.8 g/dL (3.5-5.0); ALBUMIN/GLOBULIN RATIO 1.2 (0.8-2.0); ALKALINE PHOSPHATASE 75 IU/L (40-150); ANION GAP 16.7 mmol/L (8-16); BLOOD UREA NITROGEN 19 mg/dL (7-26); BUN/CREATININE RATIO 18 (6-25); CALCIUM 9.6 mg/dL (8.4-10.2); CARBON DIOXIDE 24 mmol/L (22-29); CHLORIDE 102 mmol/L (98-107); CREATININE, SERUM 1.05 mg/dL (0.72-1.25); EST GLOMERULAR FILTRATION RATE > 60 ML/MIN (60-); GLUCOSE 116 mg/dL (74-118); POTASSIUM 3.7 mmol/L (3.5-5.1); SODIUM 139 mmol/L (136-145)
[2018-07-27] MEDS: CEFTRIAXONE SOD 1 GM/NS 50 ML 50 ML IV SCH (05:00)
--- NOTE | 2018-07-27 06:20 | NUR ---
Patient arrived from ED via wheelchair as new admit. Patient alert and oriented x3. at bedside. Patient denies any pain or discomfort. Pt admitted for hematuria. Patient ambulatory in room prn. Call crow within reach. Dr. Thompson to be notified of new consult this morning.
[2018-07-27 06:46] VITALS: BP 156/67
--- NOTE | 2018-07-27 07:00 | NUR ---
Pt received in bed at 0645 from previous shift. Pt is aox4 and able to verbalize needs. Denies any pain at this time. Breaths are even and unlabored. Pt has not voided and urine is dark benjamin colored with small amount of sediment. Dr. Thompson notified of consult and received orders fro CT scan of abd/pelvis for hematuria protocol.
[2018-07-27 08:00] VITALS: BP 123/63
[2018-07-27] MEDS ORDERED: ATORVASTATIN CA20 MG PO (08:27)
[2018-07-27] MEDS ORDERED: METFORMIN HCL500 M2 PO (08:27)
[2018-07-27] MEDS ORDERED: HUMULIN 70100 UNIT/1 SQ (08:27)
[2018-07-27] MEDS ORDERED: COREG12.5 MG PO (08:27)
[2018-07-27] MEDS ORDERED: CLONIDINE HCL0.1 MG PO (08:27)
[2018-07-27] MEDS ORDERED: LYRICA50 MG PO (08:27)
[2018-07-27] MEDS ORDERED: ASPIR 8181 MG PO (08:27)
[2018-07-27] MEDS ORDERED: LOSARTAN POTAS100 MG PO (10:16)
[2018-07-27] MEDS ORDERED: DEXTROSE 50% SYRINGE 50 ML IV PRN (11:00)
--- NOTE | 2018-07-27 11:11 | History and Physical ---
CHIEF COMPLAINT: Blood in urine since last one day. HISTORY OF PRESENT MEDICAL ILLNESS: A 63-year-old pleasant male with past medical history of multiple medical problems, was admitted at [facility] early this morning with the above complaint. Patient was admitted about 3 weeks back here at [facility] for possible pyelonephritis. Patient was given IV antibiotics. Once stable, patient was sent home. As per patient, he was feeling much better after that, no problems, then since last 2 days, he noticed that his urine was getting dark and over the last 24 hours, urine got more darker and then last night, patient saw seferino blood in his urine and hence the patient came to ER. In the emergency room, patient was seen by emergency room doctor and was admitted for further workup and treatment for hematuria. At present, patient lying comfortably in bed. No apparent distress. No chest pain. No shortness of breath. No nausea, vomiting, diarrhea. No abdominal pain, loss of consciousness, or palpitations. No headaches. No hematemesis. No melena. No fever. No cough. No witnessed seizures. No dysuria. PAST MEDICAL HISTORY 1. Diabetes mellitus, type 2. 2. CAD. 3. Hypertension. 4. Degenerative joint disease. MEDICATIONS: As listed in chart. ALLERGIES: NO KNOWN DRUG ALLERGIES. PAST SURGICAL HISTORY: Not significant. SOCIAL HISTORY: No smoking. No alcohol. No illicit drug use. Lives with family. REVIEW OF SYSTEMS: As per HPI. PHYSICAL EXAMINATION GENERAL: Patient is alert, awake, oriented x3, in no apparent distress, lying in bed. VITALS: Temperature is 97, pulse is 70 per minute, respiratory rate 16 per minute, blood pressure is 140/80, saturation is 97% on room air. SKIN: No cyanosis. No icterus. No pallor. HEENT: Normocephalic, atraumatic. PERRLA plus. NECK: Soft and supple. No JVD. No carotid bruits. No lymphadenopathy. LUNGS: Air entry bilaterally equal. No rales. CV: No murmur, gallop, or rub. ABDOMEN: Soft, nontender. Bowel sounds plus. HEALTHCARE RECEPTIONIST: Alert, awake, and oriented x3. No focal deficit. EXTREMITIES: No cyanosis, no clubbing, no edema. PERIPHERAL VASCULAR: No calf pain. LABS: White count 12, hemoglobin 13.4, hematocrit 38.4, platelets 276. Sodium 139, potassium 3.7, chloride 102, bicarb 24, BUN 19, creatinine 1.05, glucose 116. LFTs noted. Ultrasound of renal done on the 05 of July was unremarkable renal ultrasound. ASSESSMENT 1. Painless hematuria. 2. History of diabetes mellitus, coronary artery disease, hypertension. PLAN: Admit patient to medical floor. Urology consultation, Dr. Thompson. Serial H and H. Further care and treatment as per clinical course of patient in the hospital. Discussed with patient in detail. Prognosis is guarded. Job#: [id number] LPA
[2018-07-27] MEDS: INSULIN LISPRO 100 UNIT/1 ML 3ML VIAL SQ SCH ×3 (11:30→21:47)
[2018-07-27 12:00] VITALS: BP 170/79
[2018-07-27] MEDS ORDERED: IOPAMIDOL 370 MG/ML 200 ML INFUS..BTL INJ ONE (12:00)
[2018-07-27] MEDS ORDERED: SODIUM CHLORIDE 0.9% 250ML 250 ML ONE (12:00)
--- NOTE | 2018-07-27 14:06 | Diagnostic Imaging Report ---
EXAM: CT abdomen and pelvis without and with contrast INDICATION: Hematuria protocol. COMPARISON: Renal ultrasound 07/05/2018. TECHNIQUE: Abdomen and pelvis were scanned in prone position without and with contrast. Coronal and sagittal reformations were obtained. Hematuria protocol was performed. Scan was performed during portal venous phase. Delayed phase imaging obtained. IV CONTRAST: 100 cc of Isovue 370. ORAL CONTRAST: Water RADIATION DOSE: Total DLP: 1502.5 mGy*cm COMPLICATIONS: None FINDINGS: LINES and TUBES: None. LOWER THORAX: Coronary atherosclerosis. HEPATOBILIARY: No focal hepatic lesions. No biliary ductal dilation. GALLBLADDER: No radio-opaque stones or sludge. No wall thickening. SPLEEN: No splenomegaly. PANCREAS: No focal masses or ductal dilatation. ADRENALS: No adrenal nodules KIDNEYS/URETERS: Kidneys enhance symmetrically. No hydronephrosis. No solid mass lesions. The majority of the ureters are opacified and demonstrate no specific evidence of urothelial lesion. No evidence of hydronephrosis. Punctate subcentimeter bilateral renal hypodensities are too small to characterize, but likely represent cysts. There is a 1.3 cm hypodense lesion in the left upper pole kidney (series 6, image 70), indeterminate measuring 26 HU on non-contrast study and 41 HU on delayed images. GI TRACT: No abnormal distention, wall thickening, or evidence of bowel obstruction. Appendix is unremarkable. PELVIS: The bladder is partially opacified on delayed images. Layering posterior hypodense material likely represents nonopacified urine. There are two somewhat linear appearing hypodense foci along the anterior aspect of the bladder on delayed images measuring 7 mm and 8 mm. Prostatomegaly measuring 4.7 cm. LYMPH NODES: No lymphadenopathy. VESSELS: Moderate atherosclerotic calcifications within the abdominal aorta and branch vessels. PERITONEUM / RETROPERITONEUM: No free air or fluid. BONES AND SOFT TISSUES: No acute osseous abnormality. No suspicious lytic or blastic lesions . IMPRESSION: Partial opacification of the bladder on delayed images. Two somewhat linear appearing subcentimeter hypodense foci along the anterior bladder are indeterminate and could represent polyps. Direct visualization/cystoscopy is suggested for further evaluation. No evidence of solid renal mass or stone. A 1.3 cm hypodense left upper pole renal lesion is indeterminate and could reflect proteinaceous or hemorrhagic cyst. A renal protocol CT or MRI may be considered for further evaluation. Signed by: Dr. Lyubov Goldman MD on 07/27/2018 2:03 PM
[2018-07-27 16:00] VITALS: BP 125/60
[2018-07-27] MEDS: CARVEDILOL 12.5 MG TAB PO SCH (17:31)
[2018-07-27] MEDS: INSULIN ASPART 70/30 100 UNITS/ML VIAL SC SCH (17:32)
--- NOTE | 2018-07-27 19:10 | Consultation ---
DATE OF CONSULTATION: July 27, 2018 UROLOGY CONSULTATION REASON FOR CONSULTATION: Gross hematuria. HISTORY OF PRESENT ILLNESS: Devin Murrieta is a 63-year-old man who has never seen urologist. The patient had an admission to the hospital approximately 3 weeks ago for pyelonephritis. Urological consultation was not sought at that time. The patient presented to the emergency room with painless gross hematuria. Following admission, urological consultation was sought. The patient denies lower tract obstructive as well as irritative symptoms. He denies any urolithiasis. PAST MEDICAL AND SURGICAL HISTORY 1. Diabetes mellitus. 2. Coronary artery disease, status post heart catheterization with medical management and no stenting. 3. Hypertension. 4. Degenerative joint disease. 5. Status post surgery on toes. 6. Hypercholesterolemia. ALLERGIES: NONE KNOWN. CURRENT MEDICATIONS: Please refer to the MAR. SOCIAL HISTORY: The patient denies smoking, alcohol, or drug use. He quit smoking many years ago. 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 FAMILY HISTORY: Noncontributory for the active urological problems. REVIEW OF SYSTEMS: As consistent with above history of present illness and past medical history. Otherwise, negative for all other systems. PHYSICAL EXAMINATION GENERAL: Very pleasant 63-year-old man, sitting up in bed, in no apparent distress. VITALS: He is currently afebrile. Vital signs are currently stable. ABDOMEN: Soft, nondistended and nontender without costovertebral angle tenderness. Kidneys are not palpable. No hepatosplenomegaly. No evidence of hernia. Patient is obese. GENITOURINARY: Testes descended bilaterally. Testes and epididymis bilaterally palpably normal. The patient has a normal uncircumcised male phallus with normal meatus without any lesion. Digital rectal examination deferred at the present time. For the remainder of the physical examination systems, please refer to the admission history and physical on the chart. LABORATORY STUDIES: The patient's white blood cell count is elevated at 12,040, hemoglobin is slightly low at 13.4, platelets are normal at 276,000. The patient's creatinine is 1.05. Urinalysis significant for greater than 50 rbc's, 6 to 10 wbc's, 3+ protein, 4+ blood. CT scan of the abdomen and pelvis was done as per hematuria protocol which showed bilateral small cyst and there is also an indeterminate lesion in the upper pole of the left kidney measuring only 1.3 cm that will be needing follow up. The patient was also noted to have an enlarged prostate on CT scan; however, the radiologist only measured 1 dimension of this 3-dimensional organ. ASSESSMENT 1. Bilateral renal cyst. 2. Leukocytosis. 3. Anemia. 4. Hematuria. 5. Pyuria. 6. Benign prostatic hypertrophy. 7. Left upper pole renal lesion. 8. Proteinuria. 9. Obesity. PLAN 1. Hold aspirin. 2. Hold Plavix. 3. Await urine culture and sensitivity. 4. Serial urines. 5. Patient will need cystoscopic examination as well as follow up for his prostatism. Thank you very much for involving us in the care of your patient. We will be happy to follow him along with you as well as an outpatient. Job#: [id number] RTY cc:MOLLY MILES MD
--- NOTE | 2018-07-27 19:15 | NUR ---
Patient visited in room during nursing rounds. Patient alert and oriented x3. at bedside. Patient denies any pain or discomfort. Patient educated (as per Dr. Thompson's order) regarding collecting urine on specimen cups per void (serial urine). Latest urine collected appear light benjamin. Patient ambulatory in room prn. Call crow within reach.
[2018-07-27 20:00] VITALS: BP 121/65
[2018-07-27] MEDS: ATORVASTATIN 40 MG TAB PO SCH (21:47)
[2018-07-28] VITALS (9 sets, daily range): BP systolic 119–151; BP diastolic 61–75
[2018-07-28] MEDS ORDERED: SODIUM CHLORIDE 0.9% 250ML 250 ML ONE (04:13)
[2018-07-28] MEDS: CEFTRIAXONE SOD 1 GM/NS 50 ML 50 ML IV SCH (04:25)
[2018-07-28 06:25] LABS: BASOPHILS % 0.2 % (0.0-1.0); EOSINOPHILS # (AUTO) 0.3 (0.0-0.4); EOSINOPHILS % 3.1 % (0.0-6.0); HEMATOCRIT 34.6 % (38.2-49.6); LYMPHOCYTES # (AUTO) 1.5 (1.0-3.2); LYMPHOCYTES % 18.1 % (18.0-39.1); MEAN CORPUSCULAR HEMOGLOBIN 31.4 pg (28-32); MEAN CORPUSCULAR HGB CONC 34.7 g/dL (31-35); MEAN CORPUSCULAR VOLUME 90.6 fL (81-99); MONOCYTES # (AUTO) 1.1 (0.2-0.8); NEUTROPHILS # (AUTO) 5.3 (2.1-6.9); NEUTROPHILS % 65.2 % (38.7-80.0); PLATELET COUNT 240 x10e3/uL (140-360); RED BLOOD COUNT 3.82 x10e6/uL (4.3-5.7); RED CELL DISTRIBUTION WIDTH 13.4 % (11.7-14.4)
[2018-07-28 06:56] LABS: ALANINE AMINOTRANSFERASE 23 IU/L (0-55); ALBUMIN 3.3 g/dL (3.5-5.0); ALBUMIN/GLOBULIN RATIO 1.2 (0.8-2.0); ALKALINE PHOSPHATASE 62 IU/L (40-150); ANION GAP 13.9 mmol/L (8-16); BLOOD UREA NITROGEN 14 mg/dL (7-26); BUN/CREATININE RATIO 16 (6-25); CALCIUM 9.1 mg/dL (8.4-10.2); CARBON DIOXIDE 25 mmol/L (22-29); CHLORIDE 103 mmol/L (98-107); EST GLOMERULAR FILTRATION RATE > 60 ML/MIN (60-); GLUCOSE 149 mg/dL (74-118); POTASSIUM 3.9 mmol/L (3.5-5.1); SODIUM 138 mmol/L (136-145)
--- NOTE | 2018-07-28 06:56 | NUR ---
Bedside reporting done. Patient is awake and alertx3 without any complaints voiced at this time. is at bedside. Patient continues with serial urines. He was instructed to call for assistance as needed and verbalized understanding. Bed in lowest position, locked and call crow within reach.
[2018-07-28] MEDS: INSULIN LISPRO 100 UNIT/1 ML 3ML VIAL SQ SCH ×4 (07:30→22:25)
[2018-07-28] MEDS: INSULIN ASPART 70/30 100 UNITS/ML VIAL SC SCH ×2 (08:00→17:00)
[2018-07-28] MEDS: CARVEDILOL 12.5 MG TAB PO SCH ×2 (09:00→17:25)
[2018-07-28] MEDS ORDERED: LOSARTAN POTASSIUM 100 MG TAB PO SCH (09:00)
[2018-07-28] MEDS: LOSARTAN POTASSIUM 100 MG TAB PO SCH (09:00)
[2018-07-28] MEDS ORDERED: CLONIDINE HCL 0.1 MG TAB PO SCH (09:00)
[2018-07-28] MEDS: PREGABALIN 50 MG CAP PO SCH (09:00)
[2018-07-28] MEDS ORDERED: PREGABALIN 50 MG CAP PO SCH (09:00)
[2018-07-28] MEDS: CLONIDINE HCL 0.1 MG TAB PO SCH (09:00)
--- NOTE | 2018-07-28 13:15 | NUR ---
Dr. Jacobs covering for Dr. Romero St and making rounds. New orders for cardiology consult, and to call Dr. Romero St's office to obtain recent Echo and Stress test. I spoke to [employer] in the office and copy placed in chart for Dr. Shearer to review.
--- NOTE | 2018-07-28 14:32 | NUR ---
Dr. Shearer making rounds. He reviewed EKG, Echo and Stress from Dr. St's office and stated patient is cleared from cardiology stand point to proceed with cystoscopy. Dr. Thompson called and notified.
--- NOTE | 2018-07-28 19:32 | NUR ---
PT IS RESTING IN BED. NO RESPIRATORY DISTRESS NOTED. BED IN THE LOWEST POSITION, LOCKED, BED ALARM ON, AND CALL LIGHT WITHIN REACH. WILL CONTINUE TO MONITOR.
[2018-07-28] MEDS: ATORVASTATIN 40 MG TAB PO SCH (22:25)
[2018-07-29] MEDS: CEFTRIAXONE SOD 1 GM/NS 50 ML 50 ML IV SCH (03:51)
[2018-07-29 04:00] VITALS: BP 159/87
[2018-07-29 06:03] LABS: BASOPHILS % 0.3 % (0.0-1.0); EOSINOPHILS # (AUTO) 0.3 (0.0-0.4); EOSINOPHILS % 2.7 % (0.0-6.0); HEMATOCRIT 37.4 % (38.2-49.6); HEMOGLOBIN 12.8 g/dL (14.0-18.0); LYMPHOCYTES # (AUTO) 1.5 (1.0-3.2); MEAN CORPUSCULAR HEMOGLOBIN 31.7 pg (28-32); MEAN CORPUSCULAR HGB CONC 34.2 g/dL (31-35); MEAN CORPUSCULAR VOLUME 92.6 fL (81-99); MONOCYTES % 10.3 % (4.4-11.3); NEUTROPHILS # (AUTO) 6.7 (2.1-6.9); NEUTROPHILS % 70.3 % (38.7-80.0); PLATELET COUNT 236 x10e3/uL (140-360); RED BLOOD COUNT 4.04 x10e6/uL (4.3-5.7); RED CELL DISTRIBUTION WIDTH 13.4 % (11.7-14.4)
[2018-07-29 06:31] LABS: ALANINE AMINOTRANSFERASE 25 IU/L (0-55); ALBUMIN 3.5 g/dL (3.5-5.0); ALKALINE PHOSPHATASE 69 IU/L (40-150); ANION GAP 14.9 mmol/L (8-16); BLOOD UREA NITROGEN 16 mg/dL (7-26); BUN/CREATININE RATIO 17 (6-25); CALCIUM 9.3 mg/dL (8.4-10.2); CARBON DIOXIDE 24 mmol/L (22-29); CHLORIDE 106 mmol/L (98-107); CREATININE, SERUM 0.93 mg/dL (0.72-1.25); EST GLOMERULAR FILTRATION RATE > 60 ML/MIN (60-); GLUCOSE 67 mg/dL (74-118); POTASSIUM 3.9 mmol/L (3.5-5.1); SODIUM 141 mmol/L (136-145)
[2018-07-29 07:12] LABS: INR 0.87; PROTHROMBIN TIME 12.6 seconds (11.9-14.5)
--- NOTE | 2018-07-29 07:20 | NUR ---
PATIENT RESTING IN BED, ALERT WITH NO DISTRESS, DENIES ANY PAIN, DR SHAFER HERE FOR ROUNDS
[2018-07-29] MEDS: INSULIN LISPRO 100 UNIT/1 ML 3ML VIAL SQ SCH (07:30)
[2018-07-29] MEDS: INSULIN ASPART 70/30 100 UNITS/ML VIAL SC SCH (08:00)
[2018-07-29 08:23] VITALS: BP 161/89
[2018-07-29] MEDS: CARVEDILOL 12.5 MG TAB PO SCH (08:27)
[2018-07-29] MEDS: CLONIDINE HCL 0.1 MG TAB PO SCH (08:28)
[2018-07-29] MEDS: PREGABALIN 50 MG CAP PO SCH (08:28)
[2018-07-29] MEDS: LOSARTAN POTASSIUM 100 MG TAB PO SCH (08:28)
--- NOTE | 2018-07-29 09:10 | Consultation ---
DATE OF CONSULTATION: July 28, 2018 CARDIOLOGY CONSULTATION REASON FOR CONSULTATION: Cardiac clearance. CONSULTING PHYSICIAN: Dr. Thompson HPI: This is a pleasant 63-year-old male that presented with hematuria. According to the patient, he was passing out some urine and noticed some blood in the urine with large clots that he decided to come back to the emergency room for further evaluation. He was recently admitted and discharged 2 to 3 weeks ago with pyelonephritis after being treated with antibiotics. He denied any chest pain, any palpitations, any shortness of breath, any headache, nausea, or vomiting. Cardiology was consulted for cardiac clearance for possible cystoscopy. PAST MEDICAL HISTORY: Hypertension, diabetes, back pain, arthritis, renal cyst, anemia, BPH, hematuria, DJD, and obesity. PAST SURGICAL HISTORY: Bilateral toe surgery. FAMILY HISTORY: Positive for hypertension. SOCIAL HISTORY: No smoking. He drinks occasionally. MEDICATIONS: See med list. ALLERGIES: HE IS NOT ALLERGIC TO ANY MEDICATION. REVIEW OF SYSTEMS: Negative except those mentioned above. PHYSICAL EXAMINATION VITAL SIGNS: Temperature 98, heart rate 68, blood pressure 151/74, respirations 18, oxygen saturation 98% on room air. GENERAL: He is awake, alert and oriented times 3. HEENT: Mucous membrane moist. NECK: Supple. LUNGS: Bilateral clear to auscultation. CARDIOVASCULAR: S1 and S2 present. ABDOMEN: Soft. NEUROLOGICAL: Intact. EXTREMITIES: With no edema. LABS: Sodium 138, potassium 3.9, chloride 103, CO2 25, BUN 14, creatinine 0.9, glucose 149. White blood cells 8.18, hemoglobin 12, hematocrit 34.6, and platelets 240,000. IMPRESSION 1. Hematuria. 2. Hypertension. 3. Urinary tract infection: Status post pyelonephritis. 4. Type 2 diabetes. ASSESSMENT AND PLAN 1. He has no cardiac symptoms. No chest pain or palpitations. 2. Will get an EKG. 3. He had a recent echocardiogram done in June 2018 with normal systolic function. EF 60% to 65%. 4. He had a recent normal stress test recently. 5. Okay to proceed with cystoscopy from a cardiac standpoint. Further cardiac workup pending clinical course. Thank you for this consultation. DICTATED BY MCKENZIE SAUCEDO NP Job#: [id number] MAYDA
--- NOTE | 2018-07-29 10:45 | NUR ---
Dr Geraldine St here for rounds, discharge prescription in chart
[2018-07-29 11:00] VITALS: BP 161/89
[2018-07-29] MEDS ORDERED: CEPHALEXIN500 MG PO (11:07)
--- NOTE | 2018-07-29 11:35 | NUR ---
patient discharged home, clear urination noted, Alert with no distress, denies any pain, prescription given, IV canula removed with tip intact, no ss infiltration, at bed side giving ride, transported via wheelchair [facility]
--- NOTE | 2018-07-29 13:16 | Discharge Summary ---
HISTORY: He is a 63-year-old male patient presented with a complaint of bloody urine. ADMITTING DIAGNOSES: Hematuria, history of diabetes mellitus, coronary artery disease, hypertension, and hyperlipidemia. HOSPITAL COURSE SUMMARY: The patient was admitted with above diagnoses. The patient had Urology and Cardiology consult done. Aspirin and Plavix were held. The patient asked for the clearance for cystoscopy retrograde. Aspirin and Plavix were held. The patient was treated with IV antibiotic, Rocephin. The patient's urine had showed 4+ blood and leukocyte. study was within normal limits. The patient had abdomen and pelvis CT scan done. CT scan showed possible bladder polyp as well as 1.3 cm hypodense lesion was found that could be hemorrhagic cyst. Urology evaluation was done. The patient was planned to have cysto and retrograde pyelogram. The patient will need that study as outpatient. We are going to hold aspirin and Plavix. The patient will be discharged home on oral antibiotic, Keflex. The patient will follow up with me as outpatient as well as the patient will follow with Dr. Thompson as outpatient for outpatient cystoscopic surgery. MD GUY Reddy/STEPHAN /[id number]
[2018-08-05] MEDS ORDERED: HUMULIN R100 UNIT/2 SC (15:04)
[2018-08-05] MEDS ORDERED: ASPIR 8181 MG PO (15:05)
[2018-08-05] MEDS ORDERED: PLAVIX75 MG PO (15:05)
== END 2018-07-29 11:37 | disposition home or self-care (01) ==
LOC: ER 00:13 → ERHOLD 06:10 → MED/SURG3 06:41 → INTOOBSV 07-28 07:55 → OBSVTOIN 07-28 07:55
PROVIDERS: ADMIT Internal Medicine; ATTEND Internal Medicine
DX: R31.0 Gross hematuria (principal); R31.9 Hematuria, unspecified; E11.9 Type 2 diabetes mellitus without complications; I25.10 Atherosclerotic heart disease of native coronary artery without angina pectoris; E78.5 Hyperlipidemia, unspecified; N28.89 Other specified disorders of kidney and ureter; N28.1 Cyst of kidney, acquired; E66.9 Obesity, unspecified; Z68.34 Body mass index [BMI] 34.0-34.9, adult; I10 Essential (primary) hypertension; N39.0 Urinary tract infection, site not specified; D72.829 Elevated white blood cell count, unspecified; N40.0 Benign prostatic hyperplasia without lower urinary tract symptoms; Z79.01 Long term (current) use of anticoagulants; Z79.82 Long term (current) use of aspirin
CPT/HCPCS: 36415 ×3; 74178; 80053 ×3; 81001; 82948 ×3; 83880; 85025 ×3; 85610; 87040; 93005; 99284; G0378 ×3; J0696 ×3; J1815; J7050 ×2; Q9967

== ENCOUNTER → 2018-08-06 | Day surgery (SDC) | payer OTHER ==
[2018-08-05 15:05] LABS: BASOPHILS % 0.5 % (0.0-1.0); EOSINOPHILS # (AUTO) 0.3 (0.0-0.4); EOSINOPHILS % 3.3 % (0.0-6.0); HEMATOCRIT 38.5 % (38.2-49.6); HEMOGLOBIN 13.1 g/dL (14.0-18.0); LYMPHOCYTES # (AUTO) 1.5 (1.0-3.2); LYMPHOCYTES % 19.8 % (18.0-39.1); MONOCYTES # (AUTO) 0.6 (0.2-0.8); MONOCYTES % 7.8 % (4.4-11.3); NEUTROPHILS # (AUTO) 5.2 (2.1-6.9); NEUTROPHILS % 68.2 % (38.7-80.0); PLATELET COUNT 265 x10e3/uL (140-360); RED BLOOD COUNT 4.23 x10e6/uL (4.3-5.7); RED CELL DISTRIBUTION WIDTH 13.4 % (11.7-14.4)
[2018-08-05 15:23] LABS: ANION GAP 14.2 mmol/L (8-16); BLOOD UREA NITROGEN 22 mg/dL (7-26); BUN/CREATININE RATIO 20 (6-25); CALCIUM 10.1 mg/dL (8.4-10.2); CARBON DIOXIDE 27 mmol/L (22-29); CHLORIDE 101 mmol/L (98-107); CREATININE, SERUM 1.09 mg/dL (0.72-1.25); EST GLOMERULAR FILTRATION RATE > 60 ML/MIN (60-); GLUCOSE 162 mg/dL (74-118); POTASSIUM 4.2 mmol/L (3.5-5.1); SODIUM 138 mmol/L (136-145)
[~2018-08-06] MED LIST changes: +ASPIR 8181 MG PO; +ATORVASTATIN CA20 MG PO; +BELLADONNA/OPIUM 30 MG SUPP RC ONE; +CEFTRIAXONE SOD 1 GM/NS 50 ML 50 ML IV ONE; +CEPHALEXIN500 MG PO; +CLONIDINE HCL0.1 MG PO; +COREG12.5 MG PO; +DEXAMETHASONE SOD PHOS INJ 4 MG/ML VIAL ONE; +FENTANYL CITRATE/PF 100MCG/2 ML INJ ONE; +HUMULIN 70100 UNIT/1 SQ; +HUMULIN R100 UNIT/2 SC; +IOPAMIDOL 610MG/1ML 300 MG/ML VIAL IV ONE; +LIDOCAINE HCL 2% LOCAL INJ 5 ML SDV VIAL INJ ONE; +LOSARTAN POTAS100 MG PO; +LYRICA50 MG PO; +METFORMIN HCL500 M2 PO; +MIDAZOLAM HCL 2 MG/2 ML VIAL ONE; +ONDANSETRON HCL INJ 2MG/ML 2ML 2 MG/ML VIAL ONE; +PLAVIX75 MG PO; +PROPOFOL IV EMULSION 10 MG/ML 20 ML VIAL ONE; +SEVOFLURANE INHAL SOLN 250 ML PEN BTL ONE
[2018-08-06 10:10] VITALS: BP 153/83
--- NOTE | 2018-08-11 11:03 | Operative Report ---
DATE OF PROCEDURE: 08/06/2018 SURGEON: Robb Thompson MD PREOPERATIVE DIAGNOSIS: Gross hematuria. POSTOPERATIVE DIAGNOSES: 1. Gross hematuria. 2. Urethral stricture disease of the fossa navicularis and the bulbar region. OPERATIONS PERFORMED: 1. Cystourethroscopy with calibration and dilation of urethral stricture disease (separate procedure performed for the stricture disease). 2. Cystourethroscopy with bilateral ureteral catheterization and retrograde ureteropyelography (separate procedure performed for the hematuria). 3. Interpretation of retrograde ureteropyelography. 4. Supervision of fluoroscopy, no radiologist present. ANESTHESIA: General. COMPLICATIONS: None. CLINICAL SUMMARY: Devin Murrieta is a 63-year-old man, who presented with hematuria. His blood thinners were stopped and he was brought to the operating room for the above procedures. He is aware of the risks of bleeding, infection, injury to adjacent structures, need for additional procedures and elected to proceed. OPERATIVE PROCEDURE IN DETAIL: Informed consent was verified. Devin Murrieta was properly identified, taken to the operating room, placed on the cystoscopy table in supine position. Anesthesia was uneventfully begun. The patient was then carefully and gently repositioned in dorsal lithotomy position with all pressure points well padded. His genitalia were prepared and draped in usual sterile fashion. A 22.5-Gibraltarian cystoscope sheath with the visual obturator in place was placed in the patient's urethra. It could not be advanced to pass the fossa navicularis. We calibrated the stricture to approximately 16-Gibraltarian in size and dilated to 26-Gibraltarian in size. Following this, we were easily able to place the cystoscope sheath into the patient's urethra, it was then guided down the distal urethra to the bulbar region where there was another stricture. We dilated across the stricture with the visual obturator in the cystoscope sheath. We then removed the cystoscope sheath and progressively dilated utilizing [place] sounds to 26-Gibraltarian in size. We allowed the dilator stay in place for several moments. The dilator was then removed. The 22.5-Gibraltarian cystoscope sheath was reinserted into the patient's urethra. It was guided down now dilated strictured regions. We went through the normal sphincteric region, went through the prostate bed, which was significant for visually obstructing BPH. No suspicious mucosal lesions were identified. There were no evidence of tumors. There were no evidence of stones. Some trabeculations were noted. An 8-Gibraltarian catheter was used to cannulate each ureter and retrograde ureteropyelograms were performed. Interpretation of Retrograde Ureteropyelography: Contrast was instilled in retrograde fashion bilaterally. There were no tumors, no stones, and no diverticula. Unobstructed drainage was observed bilaterally fluoroscopically. The patient's bladder was drained and cystoscope was withdrawn. Belladonna and opium suppositories were placed revealing 40 g prostate that was smooth, non-fluctuant without any nodules. The patient was uneventfully reversed from anesthesia and taken to recovery room in stable condition. Explicit postoperative instructions were given and we will follow the patient up in approximately 1 month to perform uroflowmetry and bladder ultrasonography. Robb Thompson MD [place]/MODL /[id number] cc: Sin St MD
== END | disposition home or self-care (01) ==
LOC: OR 07:12
PROVIDERS: ATTEND Urology
DX: N35.912 Unspecified bulbous urethral stricture, male (principal); N32.89 Other specified disorders of bladder; N40.1 Benign prostatic hyperplasia with lower urinary tract symptoms; N13.8 Other obstructive and reflux uropathy; E11.9 Type 2 diabetes mellitus without complications; I25.10 Atherosclerotic heart disease of native coronary artery without angina pectoris; E78.5 Hyperlipidemia, unspecified; I10 Essential (primary) hypertension; Z01.810 Encounter for preprocedural cardiovascular examination; Z01.812 Encounter for preprocedural laboratory examination; Z79.84 Long term (current) use of oral hypoglycemic drugs; Z79.02 Long term (current) use of antithrombotics/antiplatelets; Z79.82 Long term (current) use of aspirin; Z95.5 Presence of coronary angioplasty implant and graft
CPT/HCPCS: 36415 ×2; 52281; 74420; 80048; 82948; 85025; 93005; C1758; J0696; J1100; J2001; J2250; J2405; J2704; Q9967

== ENCOUNTER → 2018-08-11 | Outpatient (CLI) | payer OTHER ==
[~2018-08-11] MED LIST changes: -BELLADONNA/OPIUM 30 MG SUPP RC ONE; -CEFTRIAXONE SOD 1 GM/NS 50 ML 50 ML IV ONE; -DEXAMETHASONE SOD PHOS INJ 4 MG/ML VIAL ONE; -FENTANYL CITRATE/PF 100MCG/2 ML INJ ONE; -IOPAMIDOL 610MG/1ML 300 MG/ML VIAL IV ONE; -LIDOCAINE HCL 2% LOCAL INJ 5 ML SDV VIAL INJ ONE; -MIDAZOLAM HCL 2 MG/2 ML VIAL ONE; -ONDANSETRON HCL INJ 2MG/ML 2ML 2 MG/ML VIAL ONE; -PROPOFOL IV EMULSION 10 MG/ML 20 ML VIAL ONE; -SEVOFLURANE INHAL SOLN 250 ML PEN BTL ONE
--- NOTE | 2018-08-11 16:28 | Diagnostic Imaging Report ---
EXAM: US TESTICULAR DATE: 08/11/2018 2:33 PM INDICATION: Right testicular pain COMPARISON: None FINDINGS: Grayscale and color flow Doppler ultrasound of the scrotal contents was performed. Right testicle: 3.6 x 1.8 x 2.7 cm. Normal color flow arterial and venous vascularity. Homogeneous texture with no discrete mass. Small simple hydrocele. No varicocele. Right epididymal head: 1.1 x 1.1 x 0.8 cm. Epididymal cysts measure 0.2 x 0.2 x 0.4 cm, and 0.2 x 0.2 x 0.2 cm. There is no epididymal hyperemia. Left testicle: 3.2 x 1.9 x 2.6 cm. Normal color flow arterial and venous vascularity. Homogeneous texture with no discrete mass. No hydrocele or varicocele. Left epididymal head: 1.5 x 1.3 x 0.8 cm. There is an epididymal cyst measuring 0.5 x 0.4 x 0.5 cm. No epididymal hyperemia. Scrotum: No asymmetric scrotal thickening. IMPRESSION: 1. No testicular mass. Normal testicular color flow vascularity. 2. No epididymal hyperemia. Small epididymal cysts are seen bilaterally. 3. There is a small simple right hydrocele. Signed by: Dr. Anupam Medrano M.D. on 08/11/2018 4:25 PM
== END ==
LOC: US 14:25
PROVIDERS: ATTEND Internal Medicine
DX: N50.811 Right testicular pain (principal); N40.0 Benign prostatic hyperplasia without lower urinary tract symptoms
CPT/HCPCS: 76870; 93976